=== PATIENT | female | born 1975 | race Caucasian/White ===

== ENCOUNTER → 2019-12-01 | Outpatient (CLI) | payer OTHER | END | disposition home or self-care (01) | LOC: RAD 08:05 | PROVIDERS: ATTEND Family Medicine | DX: M62.08 Separation of muscle (nontraumatic), other site (principal) | CPT/HCPCS: 74240 ==

== ENCOUNTER 2020-05-17 08:45 | Outpatient (CLI) | payer OTHER | END 2020-05-17 23:59 | disposition home or self-care (01) | LOC: CFH 08:45 | PROVIDERS: ATTEND Nurse Practitioner Family | DX: Z12.31 Encounter for screening mammogram for malignant neoplasm of breast (principal); N64.89 Other specified disorders of breast; R10.84 Generalized abdominal pain | CPT/HCPCS: 76705; 77067 ==